=== PATIENT | male | born 1975 | race Caucasian/White ===

== ENCOUNTER 2018-04-16 19:26 | Emergency (ER) | payer MEDICAID ==
[2018-04-16] MEDS ORDERED: ASPI-1471 PO (19:39)
[2018-04-16] MEDS ORDERED: METO50TA19 PO (19:39)
[2018-04-16] MEDS ORDERED: ATOR40TA24 PO (19:39)
--- NOTE | 2018-04-16 19:39 | ER Report ---
History and Physical Time Seen By MD: 19:38 Hx. of Stated Complaint: ABD PAIN HPI/ROS CHIEF COMPLAINT: abdominal pain HISTORY OF PRESENT ILLNESS: This is a 42 year old male. He has pain in the mid to right abdomen. Has been present since this morning, mild at first and was more in the middle. Now worsening and moving to the right side. Worsens with movement. Normal bowels today. No pain or changes with urination. Has been feeling chills, but no fevers. No nausea or vomiting, but poor appetite now. No chest pain or shortness of breath. No rashes. REVIEW OF SYSTEMS: As above. Allergies: Coded Allergies: No Known Allergies (Verified Allergy, Unknown, 04/16/18) Home Meds Reported Medications Atorvastatin Calcium (LIPITOR) 40 Mg Tablet, 1 TAB PO QDAY, TAB 04/16/18 Metoprolol Succinate (METOPROLOL SUCCINATE) 50 Mg Tab.er.24h, 1 TAB PO QDAY, TAB 04/16/18 Aspirin (ASPIR 81) 81 Mg Tablet.dr, 81 MG PO QDAY, TAB 04/16/18 Reviewed Nurses Notes: Yes Constitutional Vital Sign - Last 24 Hours 04/16/18 04/16/18 04/16/18 04/16/18 19:32 19:32 19:41 19:56 Temp 97.6 Pulse 61 60 56 Resp 18 B/P (MAP) 130/86 (101) 130/83 Pulse Ox 93 98 99 O2 Delivery Room Air Room Air 04/16/18 04/16/18 04/16/18 04/16/18 20:00 20:15 20:20 20:35 Pulse 62 64 B/P (MAP) 131/83 (99) 137/84 (101) Pulse Ox 96 91 04/16/18 04/16/18 04/16/18 04/16/18 20:38 20:45 20:50 20:55 Pulse 74 ??? B/P (MAP) 116/66 (83) 108/67 (81) Pulse Ox 90 98 04/16/18 04/16/18 04/16/18 04/16/18 21:00 21:10 21:15 21:25 Pulse 62 70 B/P (MAP) 114/84 (94) 120/86 (97) Pulse Ox 96 96 04/16/18 04/16/18 04/16/1818 21:30 21:40 21:45 21:55 Pulse 63 70 B/P (MAP) 109/84 (92) 117/79 (92) Pulse Ox 96 95 04/16/18 04/16/18 04/16/18 04/16/18 22:00 22:10 22:15 22:30 Pulse 69 B/P (MAP) 104/81 (89) 122/83 (96) 117/76 (90) Pulse Ox 96 04/16/18 22:35 Pulse 71 Pulse Ox 97 Physical Exam General Appearance: The patient is alert. No acute distress. Eyes: Pupils are equal, round. No pallor, injection or icterus. ENT: Mucous membranes are moist. Normal oral mucosa. Posterior oropharynx is normal. Neck: Supple and non tender. Respiratory: Lungs are clear to auscultation. Cardiovascular: Regular rate and rhythm. No murmurs, gallops or rubs. Normal capillary refill. Gastrointestinal: Abdomen is soft and has tenderness in right lower and to the midline. Has small umbilical hernia, but non-tender and reducible. Has mild rebound in right lower. Negative kay. Nondistended. Normal active bowel sounds. Neurological: Alert and oriented x3. No focal neurologic. Skin: Warm and dry. No rashes. Musculoskeletal: Extremities are nontender. No tenderness in palpation of the cervical, thoracic and lumbar spine. DIFFERENTIAL DIAGNOSIS: After history and physical exam, differential diagnosis was considered for abdominal pain including but not limited to appendicitis, cholecystitis, gastritis and urinary tract infection. Medical Decision Making Data Points Result Diagram: 04/16/18195504/16/181955 Laboratory Hematology Test 04/16/18 19:33 04/16/18 19:56 Urine Color Yellow Urine Clarity Cloudy Urine pH 7.0 pH (4.8-9.5) Urine Specific Thurmond 1.016 Urine Protein Negative mg/dL (NEGATIVE) Urine Glucose (UA) Negative mg/dL (NEGATIVE) Urine Ketones Negative mg/dL (NEGATIVE) Urine Blood Negative (NEGATIVE) Urine Nitrite Negative (NEGATIVE) Urine Bilirubin Negative (NEGATIVE) Urine Urobilinogen Negative mg/dL (0.2-1.9) Urine Leukocyte Esterase Negative (NEGATIVE) Urine RBC None /HPF (0-2/HPF) Urine WBC <1 /HPF (0-5/HPF) Urine Squamous Epithelial Cells None /LPF (</=FEW) Urine Amorphous Crystals Few /HPF Urine Bacteria Few /HPF (NONE-FEW) Urine Granular Casts Few /LPF (NONE) Urine Mucus None /HPF (NONE-FEW) Red Blood Count 6.29 M/uL (4.00-5.60) Mean Corpuscular Volume 82.2 fL (80.0-96.0) Mean Corpuscular Hemoglobin 28.7 pg (26.0-33.0) Mean Corpuscular Hemoglobin Concent 34.9 g/dL (32.0-36.0) Red Cell Distribution Width 14.3 % (11.5-14.5) Mean Platelet Volume 8.8 fL (7.2-11.1) Neutrophils (%) (Auto) 82.9 % (39.4-72.5) Lymphocytes (%) (Auto) 12.6 % (17.6-49.6) Monocytes (%) (Auto) 3.6 % (4.1-12.4) Eosinophils (%) (Auto) 0.4 % (0.4-6.7) Basophils (%) (Auto) 0.5 % (0.3-1.4) Nucleated RBC Relative Count (auto) 0.1 /100WBC Neutrophils # (Auto) 10.5 K/uL (2.0-7.4) Lymphocytes # (Auto) 1.6 K/uL (1.3-3.6) Monocytes # (Auto) 0.4 K/uL (0.3-1.0) Eosinophils # (Auto) 0.0 K/uL (0.0-0.5) Basophils # (Auto) 0.1 K/uL (0.0-0.1) Nucleated RBC Absolute Count (auto) 0.02 K/uL Sodium Level 140 mmol/L (137-145) Potassium Level 4.0 mmol/L (3.5-5.0) Chloride Level 102 mmol/L (98-107) Carbon Dioxide Level 27 mmol/L (22-30) Blood Urea Nitrogen 12 mg/dl (9-21) Creatinine 0.80 mg/dl (0.66-1.25) Glomerular Filtration Rate Calc > 60.0 Random Glucose 106 mg/dl (75-110) Lactate 1.4 mmol/L (0.7-2.1) Calcium Level 9.5 mg/dl (8.4-10.2) Total Bilirubin 0.5 mg/dl (0.2-1.3) Aspartate Amino Transf (AST/SGOT) 21 U/L (0-35) Alanine Aminotransferase (ALT/SGPT) 32 U/L (0-56) Alkaline Phosphatase 82 U/L (0-126) C-Reactive Protein 0.6 mg/dl (<1.0) Total Protein 7.3 g/dl (6.3-8.2) Albumin 4.7 g/dl (3.5-5.0) Amylase Level 103 U/L (0-110) Lipase 119 U/L (23-300) Chemistry Test 04/16/18 19:33 04/16/18 19:56 Urine Color Yellow Urine Clarity Cloudy Urine pH 7.0 pH (4.8-9.5) Urine Specific Thur[place] 1.016 Urine Protein Negative mg/dL (NEGATIVE) Urine Glucose (UA) Negative mg/dL (NEGATIVE) Urine Ketones Negative mg/dL (NEGATIVE) Urine Blood Negative (NEGATIVE) Urine Nitrite Negative (NEGATIVE) Urine Bilirubin Negative (NEGATIVE) Urine Urobilinogen Negative mg/dL (0.2-1.9) Urine Leukocyte Esterase Negative (NEGATIVE) Urine RBC None /HPF (0-2/HPF) Urine WBC <1 /HPF (0-5/HPF) Urine Squamous Epithelial Cells None /LPF (</=FEW) Urine Amorphous Crystals Few /HPF Urine Bacteria Few /HPF (NONE-FEW) Urine Granular Casts Few /LPF (NONE) Urine Mucus None /HPF (NONE-FEW) White Blood Count 12.6 k/uL (4.5-11.0) Red Blood Count 6.29 M/uL (4.00-5.60) Hemoglobin 18.0 g/dL (14.0-18.0) Hematocrit 51.7 % (42.0-52.0) Mean Corpuscular Volume 82.2 fL (80.0-96.0) Mean Corpuscular Hemoglobin 28.7 pg (26.0-33.0) Mean Corpuscular Hemoglobin Concent 34.9 g/dL (32.0-36.0) Red Cell Distribution Width 14.3 % (11.5-14.5) Platelet Count 274 K/uL (150-450) Mean Platelet Volume 8.8 fL (7.2-11.1) Neutrophils (%) (Auto) 82.9 % (39.4-72.5) Lymphocytes (%) (Auto) 12.6 % (17.6-49.6) Monocytes (%) (Auto) 3.6 % (4.1-12.4) Eosinophils (%) (Auto) 0.4 % (0.4-6.7) Basophils (%) (Auto) 0.5 % (0.3-1.4) Nucleated RBC Relative Count (auto) 0.1 /100WBC Neutrophils # (Auto) 10.5 K/uL (2.0-7.4) Lymphocytes # (Auto) 1.6 K/uL (1.3-3.6) Monocytes # (Auto) 0.4 K/uL (0.3-1.0) Eosinophils # (Auto) 0.0 K/uL (0.0-0.5) Basophils # (Auto) 0.1 K/uL (0.0-0.1) Nucleated RBC Absolute Count (auto) 0.02 K/uL Glomerular Filtration Rate Calc > 60.0 Lactate 1.4 mmol/L (0.7-2.1) Calcium Level 9.5 mg/dl (8.4-10.2) Total Bilirubin 0.5 mg/dl (0.2-1.3) Aspartate Amino Transf (AST/SGOT) 21 U/L (0-35) Alanine Aminotransferase (ALT/SGPT) 32 U/L (0-56) Alkaline Phosphatase 82 U/L (0-126) C-Reactive Protein 0.6 mg/dl (<1.0) Total Protein 7.3 g/dl (6.3-8.2) Albumin 4.7 g/dl (3.5-5.0) Amylase Level 103 U/L (0-110) Lipase 119 U/L (23-300) Urinalysis Test 04/16/18 19:33 Urine Color Yellow Urine Clarity Cloudy Urine pH 7.0 pH (4.8-9.5) Urine Specific Thur[place] 1.016 Urine Protein Negative mg/dL (NEGATIVE) Urine Glucose (UA) Negative mg/dL (NEGATIVE) Urine Ketones Negative mg/dL (NEGATIVE) Urine Blood Negative (NEGATIVE) Urine Nitrite Negative (NEGATIVE) Urine Bilirubin Negative (NEGATIVE) Urine Urobilinogen Negative mg/dL (0.2-1.9) Urine Leukocyte Esterase Negative (NEGATIVE) Urine RBC None /HPF (0-2/HPF) Urine WBC <1 /HPF (0-5/HPF) Urine Squamous Epithelial Cells None /LPF (</=FEW) Urine Amorphous Crystals Few /HPF Urine Bacteria Few /HPF (NONE-FEW) Urine Granular Casts Few /LPF (NONE) Urine Mucus None /HPF (NONE-FEW) EKG/Imaging Imaging COMPUTED TOMOGRAPHY OF THE Abdomen and Pelvis with CONTRAST INDICATION: Right lower quadrant and periumbilical abdominal pain. TECHNIQUE: Contiguous axial 3.[address] images were obtained through the abdomen and pelvis with 75 cc Isovue-[id number]. Coronal and sagittal reformatted images were submitted. COMPARISON: None. FINDINGS: Lung bases: The imaged lung bases are clear. Liver and hepatic vasculature: No focal liver lesion. Gallbladder and bile ducts: Normal Spleen: Normal Pancreas: Normal Adrenals: Normal Kidneys, ureters and bladder: No hydronephrosis or collecting system obstruction. Normal-appearing bladder. Retroperitoneum and aorta: Normal caliber aorta. Mild scattered atherosclerosis. GI tract, mesentery and peritoneum: There are scattered colonic diverticula without findings of diverticulitis. The colon is largely decompressed. Several small bowel loops in the low and mid abdomen are fluid filled with air-fluid levels. A few measure just over 3 cm diameter. There may be a transition point near series 2 image 107 right of midline in the pelvis. Prostate: Unremarkable. Bones and soft tissues: No acute osseous abnormality. IMPRESSION: 1. A few small bowel loops in the mid and lower abdomen are fluid filled, mildly dilated, with air-fluid levels. The colon is relatively decompressed. A partial or intermittent obstruction or developing obstruction is not excluded. There may be a transition point in the pelvis right of midline as noted above. One of the following dose optimization techniques was utilized in the performance of this exam: Automated exposure control; adjustment of the mA and/ or kV according to the patient's size; or use of an iterative reconstruction technique. Specific details can be referenced in the facility's radiology CT exam operational policy. Report Dictated By: Brian Chinchilla MD at 04/16/2018 8:45 PM ED Course/Re-evaluation Clinical Indication for ER IV: Hydration, IV Access ED Course The right lower abdominal pain was significant, but improved with the pain medication. He feels much better. Labs show an elevated white blood cell count, with slight shift. He has some changes on CT scan that could represent partial or developing small bowel obstruction. Discussed the case with Dr. Hernandes, who came to the ER to evaluate the patient. He will return home and return tomorrow to be re-evaluated by Dr. Hernandes. Decision to Disposition Date: Apr 16, 2018 Decision to Disposition Time: 22:20 Depart Departure Latest Vital Signs Vital Signs Date Time Temp Pulse Resp B/P (MAP) Pulse Ox O2 Delivery O2 Flow Rate FiO2 04/16/18 22:35 71 97 04/16/18 22:30 117/76 (90) 04/16/18 19:56 Room Air 04/16/18 19:32 97.6 18 Impression: Primary Impression: Abdominal pain Condition: Improved Disposition: HOME OR SELF-CARE Patient Instructions: Abdominal Pain (ED) Additional Instructions: Watch for signs of worsening pain, nausea/vomiting, or fevers. Return in the morning as discussed with Dr. Hernandes for re-evaluation. Return sooner if worsening Problem Qualifiers Primary Impression: Abdominal pain Abdominal location: right lower quadrant Qualified Codes: R10.31 - Right lower quadrant pain JEFF CANAS MD Apr 16, 2018 19:39
[2018-04-16] MEDS ORDERED: NS(*) 0.9% 1000 ML BAG 1,000 ML IV ONE ×2 (19:46→21:45)
[2018-04-16] MEDS ORDERED: ONDANSETRON 4 MG/2 ML VIAL IVP ONE (19:50)
[2018-04-16] MEDS ORDERED: MORPHINE 4 MG/ML SDV IVP ONE (19:50)
[2018-04-16] MEDS ORDERED: PANTOPRAZOLE SOD 40 MG IV VIAL IVP ONE (19:50)
[2018-04-16] MEDS ORDERED: IOPAMIDOL 76% 100 ML INFUS BTL 100 ML ONE (20:00)
[2018-04-16 20:02] LABS: PLATELET COUNT, AUTOMATED 274 K/uL (150-450)
[2018-04-16] MEDS ORDERED: HYDROMORPHONE HCL 1 MG/ML SYRINGE IVP ONE (20:35)
--- NOTE | 2018-04-16 21:00 | RADIOLOGY IMAGING REPORT ---
FACILITY: [facility] PATIENT NAME: Jules Burnett : 1975 MR: [id number] V: [id number] EXAM DATE: ORDERING PHYSICIAN: JEFF CANAS TECHNOLOGIST: Location: [facility] [place] Patient: Jules Burnett : 1975 Visit/Account:[id number] Date of Sevice: 04/16/2018 COMPUTED TOMOGRAPHY OF THE Abdomen and Pelvis with CONTRAST INDICATION: Right lower quadrant and periumbilical abdominal pain. TECHNIQUE: Contiguous axial 3.[address] images were obtained through the abdomen and pelvis with 75 cc Isovue-370. Coronal and sagittal reformatted images were submitted. COMPARISON: None. FINDINGS: Lung bases: The imaged lung bases are clear. Liver and hepatic vasculature: No focal liver lesion. Gallbladder and bile ducts: Normal Spleen: Normal Pancreas: Normal Adrenals: Normal Kidneys, ureters and bladder: No hydronephrosis or collecting system obstruction. Normal-appearing b ladder. Retroperitoneum and aorta: Normal caliber aorta. Mild scattered atherosclerosis. GI tract, mesentery and peritoneum: There are scattered colonic diverticula without findings of diver ticulitis. The colon is largely decompressed. Several small bowel loops in the low and mid abdomen ar e fluid filled with air-fluid levels. A few measure just over 3 cm diameter. There may be a transitio n point near series 2 image 107 right of midline in the pelvis. Prostate: Unremarkable. Bones and soft tissues: No acute osseous abnormality. IMPRESSION: 1. A few small bowel loops in the mid and lower abdomen are fluid filled, mildly dilated, with air-fl uid levels. The colon is relatively decompressed. A partial or intermittent obstruction or developing obstruction is not excluded. There may be a transition point in the pelvis right of midline as noted above. One of the following dose optimization techniques was utilized in the performance of this exam: Autom ated exposure control; adjustment of the mA and/or kV according to the patient's size; or use of an i terative reconstruction technique. Specific details can be referenced in the facility's radiology C T exam operational policy. Report Dictated By: Brian Chinchilla MD at 04/16/2018 8:45 PM Report E-Signed By: Brian Chinchilla MD at 04/16/2018 8:57 PM WSN:[id number]
[2018-04-16] MEDS ORDERED: KETOROLAC 30 MG/ML VIAL IVP ONE (22:10)
[2018-04-16 22:30] VITALS: BP 117/76
[2018-04-16] MEDS ORDERED: KETOROLAC TROM 10 MG TAB TH PO ONE (22:40)
[2018-04-16] MEDS ORDERED: ONDANSETRON 4 MG ODT TH SL ONE (22:40)
[2018-04-16] MEDS ORDERED: ACET/HYDROC 5/325MG TH ER ONLY 2 TAB/BOTTLE PO ONE (22:40)
== END 2018-04-16 22:47 | disposition home or self-care (01) ==
LOC: ER 19:37
DX: R10.31 Right lower quadrant pain (principal)
CPT/HCPCS: 74177; 81001; 82150; 83605; 83690; 85025; 86140; 96361; 96374; 96375; 99284; C9113; J1170; J1885; J2270; J2405; J7030; Q9967; S0119; 82040; 82247; 82310; 82374; 82435; 82565; 82947; 84075; 84132; 84155; 84295; 84450; 84460; 84520

== ENCOUNTER 2018-08-14 05:38 | Emergency (ER) | payer MEDICAID ==
[~2018-08-14 05:38] MED LIST changes: -HYDR-653 PO; -METH-543 PO
--- NOTE | 2018-08-14 05:45 | ER Report ---
History and Physical Time Seen By MD: 05:46 HPI/ROS CHIEF COMPLAINT: Acute low back pain HISTORY OF PRESENT ILLNESS: 42-year-old male brought in by EMS from home. Unable to stand up or ambulate with severe back pain. Patient states she's been having intermittent back pain for several years. Occasionally exacerbates it working construction. Using takes it easy as it settles back down. But last night he was unable to move or get out of bed and is complaining of severe pain. It ceased up his back with acute spasm if he tried to move in any particular way. He notes no radiation to his lower extremities. He denies dysuria, hematuria or frequency. He denies incontinence. Patient states she is a strong family history of bad backs. Patient's liver had his back evaluated. EMS administered 2 mg Ativan in route. He's much relaxed on arrival. He is able to roll over for evaluation of his back. He is able to hold his legs up and move them around. REVIEW OF SYSTEMS: Respiratory: No cough, no dyspnea. Cardiovascular: No chest pain, no palpitations. Gastrointestinal: No vomiting, no abdominal pain. Musculoskeletal: As above Allergies: Coded Allergies: No Known Allergies (Verified Allergy, Unknown, 04/16/18) Home Meds Active Scripts Hydrocodone Bit/Acetaminophen (NORCO 5-325 TABLET) 1 Each Tablet, 1 EACH PO Q4H PRN for PAIN, #12 TAB Prov:ARLEY ALCANTAR DO 08/14/18 Methocarbamol (ROBAXIN-750) 750 Mg Tablet, 1 TAB PO TID PRN for mmuscle spasm relief, #20 Prov:ARLEY ALCANTAR DO 08/14/18 Discontinued Reported Medications Atorvastatin Calcium (LIPITOR) 40 Mg Tablet, 1 TAB PO QDAY, TAB 04/16/18 Metoprolol Succinate (METOPROLOL SUCCINATE) 50 Mg Tab.er.24h, 1 TAB PO QDAY, TAB 04/16/18 Aspirin (ASPIR 81) 81 Mg Tablet.dr, 81 MG PO QDAY, TAB 04/16/18 Reviewed Nurses Notes: Yes Old Medical Records Reviewed: Yes Hx Substance Use Disorder: Yes (SMOKES POT) Hx Alcohol Use: No Constitutional Vital Sign - Last 24 Hours 08/14/18 08/14/18 08/14/18 08/14/18 05:38 05:41 05:41 06:00 Temp 98.7 Pulse ??? 81 Resp 16 B/P (MAP) 114/73 (87) 114/73 106/78 (87) Pulse Ox 91 O2 Delivery Room Air 08/14/18 08/14/18 06:08 06:30 Pulse 75 B/P (MAP) 107/68 (81) Pulse Ox 89 Physical Exam General Appearance: The patient is alert, has no immediate need for airway protection and no current signs of toxicity. Vital signs stable, afebrile, pulse ox normal, moderate distress Eyes: Pupils equal and round no injection. Respiratory: Chest is non tender, lungs are clear to auscultation. Cardiac: regular rate and rhythm Gastrointestinal: Abdomen is soft and non tender, no masses, bowel sounds normal. Musculoskeletal: Neck: Neck is supple and non tender. Back:, There is no tenderness in the midline or the SI joints. There is some tenderness along the paraspinous musculature. Extremities have full range of motion and are non tender. Skin: No rashes or lesions. DIFFERENTIAL DIAGNOSIS: After history and physical exam differential diagnosis was considered for back pain including but not limited to muscular pain, herniated disc, spine fracture, intra-abdominal causes and urinary tract infection. Medical Decision Making EKG/Imaging Imaging X-ray: Three-view lumbar spine was obtained. I viewed the images myself on the PACS system. My interpretation of the images is: Fracture, no malalignment, no subluxation. The radiologist interpretation had no clinically significant variation from this interpretation. ED Course/Re-evaluation ED Course Patient was admitted to an examination room. H&P was done. The differential diagnoses was considered. On clinical examination. Patient has a nonfocal neurologic examination. He has low back pain and spasm with movement. I suspect overuse his lumbar muscles and suffered of strain. Patient reports history is of similar episodes in the past. Patient was medicated with Ativan 2 mg by EMS in route. His much relaxed on arrival. He is able to rollover for examination. He has negative straight leg raise bilaterally. Patient has diagnostic x-rays the lumbar spine performed which are relatively unremarkable. Her some mild degenerative changes, otherwise all distaste is are well preserved. There is normal alignment. Patient's reassured. His x-ray looks unremarkable. He is wondering if an MRI might be helpful. I think it will not be since he has no symptoms radiating down his lower extremities and no incontinence. Patient's advised to conservative treatment plan of ibuprofen 60 mg 3 times daily. He is given a limited supply of Robaxin and a very limited supply of hydrocodone for pain relief. Advised to follow-up with his primary care physician in [place] for MRI if his symptoms persist in 3-5 days. Decision to Disposition Date: Aug 14, 2018 Decision to Disposition Time: 06:37 Depart Departure Latest Vital Signs Vital Signs Date Time Temp Pulse Resp B/P (MAP) Pulse Ox O2 Delivery O2 Flow Rate FiO2 08/14/18 06:30 107/68 (81) 08/14/18 06:08 75 89 08/14/18 05:41 98.7 16 Room Air Impression: Primary Impression: Acute low back pain Condition: Improved Disposition: HOME OR SELF-CARE New Scripts Hydrocodone Bit/Acetaminophen (NORCO 5-325 TABLET) 1 Each Tablet 1 EACH PO Q4H PRN for PAIN, #12 TAB Prov: ARLEY ALCANTAR DO 08/14/18 Methocarbamol (ROBAXIN-750) 750 Mg Tablet 1 TAB PO TID PRN for mmuscle spasm relief, #20 Prov: ARLEY ALCANTAR DO 08/14/18 Patient Instructions: Low Back Strain (ED) Additional Instructions: Take ibuprofen 200 mg 3 tablets 3 times a day with food Follow-up with your primary care if unimproved in 3-5 days or go to the doctor listed on your paperwork Problem Qualifiers Primary Impression: Acute low back pain Back pain laterality: midline Sciatica presence: without sciatica Qualified Codes: M54.5 - Low back pain ARLEY ALCANTAR DO Aug 14, 2018 05:45
[2018-08-14] MEDS ORDERED: IBUPROFEN 600 MG TAB PO ONE (05:55)
[2018-08-14] MEDS ORDERED: METHOCARBAMOL 500 MG TAB PO ONE (05:55)
[2018-08-14] MEDS ORDERED: APAP/HYDROCODONE 325/5 TAB PO ONE (05:55)
[2018-08-14] MEDS ORDERED: HYDR-653 PO (06:14)
[2018-08-14] MEDS ORDERED: METH-543 PO (06:14)
[2018-08-14 06:30] VITALS: BP 107/68
--- NOTE | 2018-08-14 06:48 | RADIOLOGY IMAGING REPORT ---
FACILITY: [facility] PATIENT NAME: Jules Burnett : 1975 MR: [id number] V: [id number] EXAM DATE: ORDERING PHYSICIAN: ARLEY ALCANTAR TECHNOLOGIST: Location: [facility] Patient: Jules Burnett : 1975 Visit/Account:[id number] Date of Sevice: 08/14/2018 LUMBAR SPINE 2 OR 3 VIEW HISTORY: Low back pain. COMPARISON: None. TECHNIQUE: AP and lateral views of the lumbar spine. FINDINGS: There are 5 nonrib-bearing lumbar type vertebral bodies. Vertebral body heights are [place]. No listhesis. There is mild leftward rotation of the lumbar spine, potentially positional. There is minimal degenerative change of the spine. The sacroiliac joints are patent without widening. IMPRESSION: 1. Minimal degenerative changes without acute osseous abnormality. Report Dictated By: Adelaida Mac at 08/14/2018 6:42 AM Report E-Signed By: Adelaida Mac at 08/14/2018 6:43 AM WSN:[id number]
[2018-08-14] MEDS ORDERED: ACET/HYDROC 5/325MG TH ER ONLY 2 TAB/BOTTLE PO ONE (06:55)
== END 2018-08-14 07:00 | disposition home or self-care (01) ==
LOC: ER 06:50
DX: M54.5 Low back pain (principal)
CPT/HCPCS: 72100; 99283

== ENCOUNTER → 2018-08-14 | Outpatient (CLI) | payer MEDICAID ==
[~2018-08-14] MED LIST: ASPI-1471 PO; ATOR40TA24 PO; HYDR-653 PO; METH-543 PO; METO50TA19 PO
== END ==
LOC: AMB 04:58
PROVIDERS: ATTEND Nurse Practitioner
DX: M54.5 Low back pain (principal)
CPT/HCPCS: A0425; A0427